=== PATIENT | female | born 1940 | race African-American/Black ===

== ENCOUNTER 2016-12-14 15:32 | Inpatient (IN) | payer MEDICARE, OTHER ==
[~2016-12-14] VITALS: Ht 160 cm; Wt 59.0 kg
[~2016-12-14 15:32] MED LIST: AMIODARONE HCL 50MG/ML 3ML VIAL IV ONE; ATROPINE SULFATE 1MG/10ML SYR ONE; DOPAMINE 400MG IN DEXT 5% 250ML PREMIX IV ONE; EPINEPHRINE 0.1MG/ML (1:10,000) 10ML SYR ONE; IOHEXOL-350 100 ML BOTTLE ONE; SODIUM BICARBONATE 7.5% 0.9 MEQ/ML 50ML SYR IV ONE; SODIUM CHLORIDE 0.9% 10ML VIAL ONE
[2016-12-14] MEDS ORDERED: SODIUM CHLORIDE 0.9% 1000ML BAG (SEPSIS BOLUS) IV ONE (16:00)
[2016-12-14 16:08] LABS: BG FRACTION INSPIRED OXYGEN 100; BG HCO3 ACT 11.6 mmol/L (22.0-26.0); BG PCO2 38.8 mmHg (35.0-45.0); BG PH 7.093 (7.350-7.450); BG SAMPLE SITE A-LINE; BG TOTAL HEMOGLOBIN < 4.5 g/dL (12.0-18.0); BG VENT MODE AMBU BAG
[2016-12-14] MEDS ORDERED: NOREPINEPHRINE 4 MG in DEXT 5% WATER 246 ML IV NR (16:15)
[2016-12-14] MEDS ORDERED: NOREPINEPHRINE 4 MG in DEXT 5% WATER 246 ML IV ONE ×2 (16:15→18:00)
[2016-12-14] MEDS ORDERED: EPINEPHRINE 0.1MG/ML (1:10,000) 10ML SYR ONE (16:17)
[2016-12-14] MEDS ORDERED: SODIUM BICARBONATE 8.4% 1 MEQ/ML 50ML SYR IV ONE ×4 (16:22→18:29)
[2016-12-14 16:24] VITALS: BP 118/59
[2016-12-14] MEDS ORDERED: CALCIUM CHLORIDE 1GM/10ML SYR IV ONE (16:36)
[2016-12-14 16:37] LABS: BASOPHILS % 0.6 % (0.0-2.0); EOSINOPHILS % 0.4 % (0.0-5.0); LYMPHOCYTES % 24.7 % (20.0-50.0); MEAN CORPUSCULAR HEMOGLOBIN 33.8 pg (28.0-32.0); MEAN PLATELET VOLUME 9.1 fl (7.4-10.4); NEUTROPHILS % 71.3 % (40.0-76.0); PLATELET 79 x1000/uL (130-400); RED BLOOD CELL COUNT 1.22 mill/uL (4.2-5.4); RED CELL DISTRIBUTION WIDTH 14.4 % (11.6-14.6)
[2016-12-14 16:44] LABS: HEMATOCRIT. 13.1 % (36.0-48.0); HEMOGLOBIN. 4.1 g/dL (12.0-16.0)
[2016-12-14 16:52] LABS: CARBON DIOXIDE 12 mEq/L (21-32); CHLORIDE 108 mEq/L (98-107)
[2016-12-14 16:59] LABS: BG FRACTION INSPIRED OXYGEN 100; BG HCO3 ACT 14.9 mmol/L (22.0-26.0); BG PCO2 38.4 mmHg (35.0-45.0); BG PH 7.206 (7.350-7.450); BG PO2 253.3 mmHg (75.0-100.0); BG SAMPLE SITE A-LINE; BG TIDAL VOLUME(mL) 500 mL; BG TOTAL HEMOGLOBIN < 4.5 g/dL (12.0-18.0); BG VENT MODE VENT - A/C; BG VENT RATE 28 set
[2016-12-14 17:13] LABS: INR 1.9; PROTHROMBIN TIME 19.9 sec
[2016-12-14] MEDS ORDERED: IPRATROPIUM/ALBUTEROL 0.5-3(2.5)MG/3ML NEB INH PRN (17:15)
[2016-12-14] MEDS ORDERED: DEXTROSE 50% WATER 50ML SYRINGE IV PRN (17:15)
[2016-12-14] MEDS ORDERED: ACETAMINOPHEN 325MG TABLET PO PRN (17:15)
[2016-12-14] MEDS ORDERED: DIPHENHYDRAMINE 50MG/ML VIAL IV PRN (17:15)
[2016-12-14] MEDS ORDERED: LORAZEPAM 2MG/ML CPJ IV PRN (17:15)
[2016-12-14] MEDS ORDERED: ONDANSETRON HCL 4MG/2ML VIAL IV PRN (17:15)
[2016-12-14 17:33] LABS: HDL CHOLESTEROL 16 mg/dL (40-59); LDL CHOLESTEROL 15 mg/dL (5-100)
[2016-12-14] MEDS ORDERED: DOPAMINE 400MG PREMIX 250 ML IV ONE ×3 (17:55→21:04)
[2016-12-14] MEDS ORDERED: DESMOPRESSIN ACETATE IVPB 25 MCG in SODIUM CHLORIDE 0.9% 50 ML IV ONE (18:00)
[2016-12-14] MEDS ORDERED: PIPERACILLIN/TAZ 3.375G PREMIX 50 ML IV ONE (18:00)
[2016-12-14 18:17] LABS: BG CARBOXYHEMOGLOBIN 0.2 % (0.5-1.5); BG DEOXYHEMOGLOBIN 2.1 % (0.0-5.0); BG FRACTION INSPIRED OXYGEN 100; BG HCO3 ACT 12.1 mmol/L (22.0-26.0); BG METHEMOGLOBIN 0.2 % (0.0-1.5); BG OXYGEN SATURATION 97.9 % (92.0-98.5); BG OXYHEMOGLOBIN 97.5 % (94.0-97.0); BG PCO2 45.5 mmHg (35.0-45.0); BG PH 7.044 (7.350-7.450); BG PO2 144.2 mmHg (75.0-100.0); BG SAMPLE SITE A-LINE; BG TIDAL VOLUME(mL) 550 mL; BG TOTAL HEMOGLOBIN 12.8 g/dL (12.0-18.0); BG VENT MODE VENT - A/C; BG VENT RATE 30 set
[2016-12-14] MEDS ORDERED: INSULIN LISPRO 100 UNITS/ML SUBCUT SCH (18:20)
[2016-12-14 18:28] LABS: VITAMIN B12 SERUM 751 pg/mL (211-911)
[2016-12-14 18:30] LABS: FOLIC ACID (FOLATE) SERUM > 20.00 ng/mL (>5.38)
[2016-12-14] MEDS: SODIUM BICARBONATE 8.4% 1 MEQ/ML 50ML SYR IV NR ×2 (18:57→20:16)
[2016-12-14] MEDS ORDERED: THROMBIN (BOVINE) 5000 UNITS/VIAL TOP NR (19:15)
[2016-12-14 19:42] LABS: BG BASE EXCESS -8.5 mmol/L (-2.0-2.0); BG CARBOXYHEMOGLOBIN 0.3 % (0.5-1.5); BG DEOXYHEMOGLOBIN 10.2 % (0.0-5.0); BG FRACTION INSPIRED OXYGEN 100; BG HCO3 ACT 19.4 mmol/L (22.0-26.0); BG METHEMOGLOBIN 0.2 % (0.0-1.5); BG OXYGEN SATURATION 89.7 % (92.0-98.5); BG OXYHEMOGLOBIN 89.3 % (94.0-97.0); BG PH 7.198 (7.350-7.450); BG PO2 67.5 mmHg (75.0-100.0); BG SAMPLE SITE A-LINE; BG TIDAL VOLUME(mL) 550 mL; BG VENT MODE VENT - A/C; BG VENT RATE 30 set
[2016-12-14] MEDS ORDERED: PHENYLEPHRINE 80 MG in DEXT 5% WATER 500 ML IV PRN (20:00)
[2016-12-14] MEDS ORDERED: SODIUM BICARBONATE 8.4% 1 MEQ/ML 50ML SYR IV NR ×2 (20:00→20:15)
[2016-12-14] MEDS ORDERED: PHENYLEPHRINE 80 MG in DEXT 5% WATER 492 ML IV PRN (20:00)
[2016-12-14] MEDS ORDERED: SODIUM BICARBONATE 150 MEQ in DEXTROSE 5% WATER 1,000 ML IV SCH (20:00)
[2016-12-14] MEDS ORDERED: IPRATROPIUM/ALBUTEROL 0.5-3(2.5)MG/3ML NEB HHN SCH (20:00)
[2016-12-14] MEDS ORDERED: DEXT 5%/0.45% NACL 1000ML 1,000 ML IV SCH (20:00)
[2016-12-14] MEDS ORDERED: BLOOD SUGAR DIAGNOSTIC STRIP TEST SCH (21:00)
[2016-12-14] MEDS ORDERED: PHYTONADIONE 10MG/ML AMP SUBCUT NR (22:00)
[2016-12-14] MEDS ORDERED: INSULIN DETEMIR UD 100 UNITS/ML SYR SUBCUT SCH (22:00)
[2016-12-14] MEDS ORDERED: PIPERACILLIN/TAZ 3.375G PREMIX 50 ML IV SCH (23:30)
[2016-12-15] MEDS ORDERED: PANTOPRAZOLE SODIUM 40 MG/VIAL IV SCH (09:00)
== END 2016-12-14 23:59 | disposition expired | DRG 208 ==
LOC: ER 15:48 → CVICU 17:39
PROVIDERS: ADMIT Internal Medicine; ATTEND Internal Medicine
PROC: 30233L1 Transfusion of Nonautologous Fresh Plasma into Peripheral Vein, Percutaneous Approach (ICD-10-PCS; principal; 2016-12-14)
PROC: 5A1935Z Respiratory Ventilation, Less than 24 Consecutive Hours (ICD-10-PCS; 2016-12-14)
PROC: 30233N1 Transfusion of Nonautologous Red Blood Cells into Peripheral Vein, Percutaneous Approach (ICD-10-PCS; 2016-12-14)
PROC: 30233K1 Transfusion of Nonautologous Frozen Plasma into Peripheral Vein, Percutaneous Approach (ICD-10-PCS; 2016-12-14)
PROC: 0BH18EZ Insertion of Endotracheal Airway into Trachea, Via Natural or Artificial Opening Endoscopic (ICD-10-PCS; 2016-12-14)
PROC: 5A12012 Performance of Cardiac Output, Single, Manual (ICD-10-PCS; 2016-12-14)
DX: J69.0 Pneumonitis due to inhalation of food and vomit (principal); J96.90 Respiratory failure, unspecified, unspecified whether with hypoxia or hypercapnia; E43 Unspecified severe protein-calorie malnutrition; K66.1 Hemoperitoneum; E87.0 Hyperosmolality and hypernatremia; D68.9 Coagulation defect, unspecified; E87.2 Acidosis; I46.9 Cardiac arrest, cause unspecified; E11.65 Type 2 diabetes mellitus with hyperglycemia; D64.9 Anemia, unspecified; D69.6 Thrombocytopenia, unspecified; E11.51 Type 2 diabetes mellitus with diabetic peripheral angiopathy without gangrene; I10 Essential (primary) hypertension; I25.10 Atherosclerotic heart disease of native coronary artery without angina pectoris; R58 Hemorrhage, not elsewhere classified; R74.0 Nonspecific elevation of levels of transaminase and lactic acid dehydrogenase [LDH]; I95.9 Hypotension, unspecified; I72.4 Aneurysm of artery of lower extremity; Z68.23 Body mass index [BMI] 23.0-23.9, adult; Z95.5 Presence of coronary angioplasty implant and graft
CPT/HCPCS: 31500; 36415; 36430; 36600; 43753; 51702; 70450; 71010; 74174; 80053; 80061; 82375; 82607; 82746; 82805; 82962; 83036; 83605; 83690; 83880; 84484; 85025; 85610; 86850; 86900; 86920; 86927; 87040; 92950; 93005; 94002; 94640; 96361; 96365; 96368; 99285; A4216; J0171; J0282; J0461; J1200; J1265; J1815; J2543; J2597; J3490; J7030; J7040; J7060; J7070; P9016; P9017; P9021; Q9967; A4315